=== PATIENT | female | born 1955 | race Caucasian/White ===

== ENCOUNTER → 2017-03-01 | Outpatient (CLI) | payer OTHER ==
[~2017-03-01] MED LIST: ADVAIR 5001 DISK W/D PO; ALLERGY RELIE15.8 ML; AMBIEN10 MG PO; ASPIRIN PO; ASPIRIN81 M2 PO; ATIVAN INJ; ATIVAN PO; AVANDIA PO; BENZONATATE; BENZONATATE PO; BUPROPION XL150 MG PO; COLESTIPOL HCL1 G PO; COMBIVENT INH14.7 GM INH; CYMBALTA PO; DYAZIDE 37.5/251 CAP PO; EXFORGE 5-320 M1 TAB; FLEXERIL10 M1 PO; GLUCOTROL PO; HYCODAN60 ML 5MG/ PO; IBUPROFEN800 MG PO; JANUMET XR 1001 EACH PO; KEFLEX PO; LASIX PO; LEVAQUIN PO; LEXAPRO PO; LIPITOR80 MG PO; LOMOTIL WHITE2.5 MG PO; LORAZEPAM1 MG PO; LORTAB 5/500 TA1 TA1 PO; LOSARTAN POTAS100 MG PO; METFORMIN PO; PHENTERMINE PO; PRAVACHOL; PRAVACHOL PO; PREDNISONE10 MG/DOSE; PREDNISONE10 MG/DOSE PO; PROTONIX PO; SINGULAIR PO; SKELAXIN PO; TRAZODONE HCL100 MG PO; TRAZODONE PO; UROCIT K PO; VICODIN 5/500 T1 TAB PO; WELLBUTRIN PO; ZYRTEC PO
[2017-03-01 16:37] LABS: URINE APPEARANCE CLEAR; URINE BILIRUBIN NEG (NEG); URINE BLOOD NEG (NEG); URINE COLOR YELLOW; URINE GLUCOSE 500 MG/DL (NEG); URINE KETONE NEG (NEG); URINE LEUKOCYTE ESTERASE NEG (NEG); URINE NITRATE NEG (NEG); URINE PROTEIN NEG (NEG); URINE SPECIFIC GRAVITY 1.012 (1.003-1.035); URINE UROBILINOGEN 0.2 MG/DL (NEG)
[2017-03-01 16:38] LABS: BASOPHIL# 0.1 X10e3 (0-0.3); BASOPHIL% 0.6 % (0-2.5); EOSINOPHIL# 0.3 X10e3 (0-0.7); EOSINOPHIL% 2.3 % (0.0-7.0); HEMATOCRIT 42.1 % (35.0-45.0); HEMOGLOBIN 13.6 gm/dL (12.0-16.0); LYMPHOCYTE# 2.7 X10e3 (1.0-3.5); LYMPHOCYTE% 23.5 % (17.0-45.0); MEAN CELL VOLUME 77.1 FL (83-96); MEAN CORPUSCULAR HEMOGLOBIN 24.9 PG (28-34); MEAN CORPUSCULAR HGB CONC 32.3 g/dL (30-36); MEAN PLATELET VOLUME 7.2 FL (6.5-11.5); MONOCYTE# 0.8 X10e3 (0-1.0); NEUTROPHIL# 7.6 X10e3 (1.5-7.1); NEUTROPHIL% 66.6 % (40-75); PLATELET COUNT 276 X10e3 (140-420); RED BLOOD COUNT 5.46 X10e (3.90-5.30); RED CELL DISTRIBUTION WIDTH 14.1 % (11.0-15.5); WHITE BLOOD COUNT 11.5 X10e3 (4.0-10.5)
[2017-03-01 16:39] LABS: DIFF IND NO
[2017-03-01 16:42] LABS: URINE SOURCE CLEAN CATCH
[2017-03-01 16:55] LABS: ALBUMIN SERUM 4.2 g/dL (3.5-5.0); BILIRUBIN,TOTAL 0.8 mg/dL (0.2-2.0); BUN/CREATININE RATIO 17.27; CALCIUM SERUM 10.3 mg/dL (8.4-10.2); CREATININE SERUM 1.1 mg/dL (0.6-1.4); GLOM FILT RATE Estimated 54.5 mL/min (>60); PHOSPHOROUS 2.3 mg/dL (2.5-4.6); POTASSIUM 3.7 mmol/L (3.5-5.1); PROTEIN TOTAL SERUM 7.4 g/dL (6.0-8.3)
[2017-03-03 16:37] LABS: CALCIUM (PTHINTACT) 10.7 mg/dL (8.6-10.4)
== END | disposition home or self-care (01) ==
LOC: CLAB 16:07
PROVIDERS: Internal Medicine Nephrology
DX: I12.9 Hypertensive chronic kidney disease with stage 1 through stage 4 chronic kidney disease, or unspecified chronic kidney disease (principal); N18.3 Chronic kidney disease, stage 3 (moderate); D63.1 Anemia in chronic kidney disease; R80.9 Proteinuria, unspecified; E83.30 Disorder of phosphorus metabolism, unspecified
CPT/HCPCS: 36415; 80053; 81003; 82310; 83970; 84100; 85025

== ENCOUNTER → 2017-03-08 | Outpatient (CLI) | payer OTHER ==
--- NOTE | ~2017-03-08 | MY29 ---
[facility] A Service of [facility] RADIOLOGY TEXT RESULTS PATIENT: MAGI SHAW LOCATION: [facility] : 57 UNIT #: [id number] AGE: [address]: Mandeep Moctezuma MD SEX: F ORDER DR: [id number] [facility] [place]. [place], [place] [address] [id number] O MR#: [id number] Acc #: [id number] NAME: MAGI SHAW : 1955 SEX: F STUDY DATE/TIME: 03/08/2017 9:22 UNIT: [facility] ROOM: STUDY DESCRIPTION: MY KAMRON SCREENING W/ CAD BILAT Attending Physician: Mandeep Moctezuma M.D. Ordering Physician: Mandeep Moctezuma M.D. Primary Care Physician: Mandeep Moctezuma M.D. MEDICAL IMAGING REPORT This report is preliminary unless electronic signature is present EXAM Digital screening mammogram 03/08/2017. [facility] HISTORY 61-year-old woman positive family history, maternal grandmother. Annual screen. COMPARISON: 08/31/2012, 07/28/2013, 02/04/2015 FINDINGS Digital imaging of each breast was completed utilizing a two-view examination of each breast in craniocaudal and mediolateral-oblique projections. Review and interpretation of digital mammograms include a second review in conjunction with FDA-approved CAD device. There is a normal parenchymal presentation bilaterally consistent with the patient's age. There are no breast masses imaged and no parenchymal asymmetry is visualized. There are no suspicious microcalcifications and I see no focal architectural disturbance. IMPRESSION Negative screening digital mammogram. One-year followup recommended. Patients over the age of 40 are entered into a reminder system with target due date for the next mammogram. A result letter will also be sent to the patient. BIRADS: 1 Negative Dictated by... [facility] A Service [facility] RADIOLOGY TEXT RESULTS PATIENT: MAGI SHAW LOCATION: [facility] : 57 UNIT #: [id number] AGE: [address]: Mandeep Moctezuma MD SEX: F ORDER DR: Sandor Masters M.D. THIS IS AN ELECTRONICALLY VERIFIED REPORT Sandor Masters M.D. at 03/08/2017 12:39 PM JANET/caro TD: 03/08/2017 11:37 JOB #: [id number] MEDICAL IMAGING REPORT Page 1 of 1 COPY
== END | disposition home or self-care (01) ==
LOC: CWCC 09:07
DX: Z12.31 Encounter for screening mammogram for malignant neoplasm of breast (principal); Z80.3 Family history of malignant neoplasm of breast
CPT/HCPCS: G0202